=== PATIENT | female | born 1960 | race Hispanic/Latino ===

== ENCOUNTER 2017-11-17 11:17 | Day surgery (SDC) | payer MEDICAID ==
[2017-11-12 08:10] VITALS: BMI 30.4
[2017-11-17] MEDS ORDERED: ceFAZolin IV 1 gm in Dextrose 2 GM/100 ML BAG IVPB ONE (12:39)
[2017-11-17] MEDS ORDERED: Bupivacaine HCl 0.25% PF (10 ml) Inj ONE (12:39)
[2017-11-17] MEDS ORDERED: Lidocaine 1%/Epinephrine 1:100000 30 ml vial IJ ONE (12:45)
[2017-11-17] MEDS ORDERED: Propofol 10 mg/ml Inj (20 ML) ONE ×2 (13:29→14:00)
[2017-11-17] MEDS ORDERED: Midazolam 2 MG/2 ML VIAL ONE (13:29)
[2017-11-17] MEDS ORDERED: HYDROmorphone 0.5 mg/0.5 ml ISec IVP PRN (14:24)
[2017-11-17] MEDS ORDERED: Oxycodone/Acetaminophen 5/325 mg Tab PO ONE (14:30)
--- NOTE | 2017-11-17 14:35 | PCM.SURG1 ---
Surgeon's Initial Post Op Note - Surgeon's Notes Surgeon: Dr. Ashby Lamp Cleaner: PGY1, Edson [id number] Type of Anesthesia: Local Pre-Operative Diagnosis: Sebaceous cyst on back Operative Findings: see op note Post-Operative Diagnosis: as above Operation Performed: excision of sebaceous cyst on neck Specimen/Specimens Removed: sebaceous cyst of neck Estimated Blood Loss: EBL {In ML}: 10 Drains Used: No Drains Post-Op Condition: Good Date of Surgery/Procedure: 11/17/17 Time of Surgery/Procedure: 14:35
[2017-11-17 15:30] VITALS: BP 123/70; PULSE 75; RESP 18; TEMP 97; O2SAT 100
--- NOTE | 2017-11-18 01:32 | OP ---
PROCEDURE DATE: 11/17/2017. PREOPERATIVE DIAGNOSIS: Sebaceous cyst of posterior neck. POSTOPERATIVE DIAGNOSIS: Sebaceous cyst of posterior neck. PROCEDURE: Excision of sebaceous cyst of the posterior neck, approximately 2 x 1 cm size. TYPE OF ANESTHESIA: Local anesthesia plus sedation. ESTIMATED BLOOD LOSS: Around 10 mL. DRAINS: None. PATHOLOGY: The sebaceous cyst was sent for the pathology. COMPLICATIONS: None. INTRAOPERATIVE FINDINGS: The patient had approximately 2 x 1 cm sebaceous cyst of the posterior upper neck. DESCRIPTION OF PROCEDURE: On intraoperative steps, this 57-year-old female who was diagnosed with a sebaceous cyst of the right posterior neck, and the patient was consented for the excision, brought to the OR, placed in the left lateral position. The posterior neck was prepped and draped and local anesthesia was injected. Elliptical incision was made. The upper and lower flap was created. The sebaceous cyst was completely excised, and it was sent to the table for pathology. Proper hemostasis was achieved and the wound was irrigated and layered closure of the wound was done, approximately 2 x 1 cm size simple. The second procedure is layered closure of the wound simple 2 x 1 cm size and the deep subcu was sutured with 0 Vicryl, superficial subcu with 3-0 Vicryl, and a skin with a 4-0 Monocryl and dry sterile dressing was applied. The patient tolerated the procedure well. Count of the instrument and gauze was correct. There were no apparent complication. Amandeep Ashby MD
== END 2017-11-17 15:52 | disposition home or self-care (01) ==
LOC: C.SDS 11:17
PROVIDERS: ATTEND Surgery Surgical Critical Care
DX: L72.0 Epidermal cyst (principal); F41.9 Anxiety disorder, unspecified; F32.9 Major depressive disorder, single episode, unspecified; Z86.010 Personal history of colon polyps; Z80.0 Family history of malignant neoplasm of digestive organs; H91.90 Unspecified hearing loss, unspecified ear; G89.29 Other chronic pain; M25.569 Pain in unspecified knee; K21.9 Gastro-esophageal reflux disease without esophagitis
CPT/HCPCS: 11422; 12001; 88305; J0690; J2250; J2704; J3010